=== PATIENT | male | born 1980 | race Caucasian/White ===

== ENCOUNTER 2018-12-18 15:54 | Emergency (ER) | payer OTHER, SELFPAY ==
[2018-12-18 16:04] VITALS: BP 134/65; PULSE 66; RESP 14; TEMP 36.9; O2SAT 99
--- NOTE | 2018-12-18 16:27 | DI.US.S_ITS ---
PROCEDURE: US PERIPH VENOUS LOW EXTREM RT INDICATIONS: rt leg pain, swelling TECHNIQUE: Real-time imaging, as well as color and pulse Doppler interrogation, were performed of the lower extremity deep veins from the inguinal ligament to the popliteal fossa. COMPARISON: None. FINDINGS: The deep veins are normally compressible, and free of intraluminal thrombus. Color and pulse Doppler demonstrate normal phasic intraluminal flow. There is normal augmentation response to distal compression maneuver. IMPRESSION: No deep venous thrombosis in the right lower extremity. Dictated by: Simon Buchanan M.D. on 12/18/2018 at 17:14 Approved by: Simon Buchanan M.D. on 12/18/2018 at 17:14
[2018-12-18] MEDS: KETOROLAC 60 MG/2 ML VIAL 30 MG IM (16:36)
--- NOTE | 2018-12-18 16:41 | ED.LOWEXIN ---
HPI - Extremity Injury (Lower) <LEIGHTON Butler - Last Filed: 12/18/18 17:39> General Chief Complaint: Extremity Injury, Lower Stated Complaint: RT LEG PAIN, DIFFICULTY WALKING Time Seen by Provider: 12/18/18 16:09 Source: patient Mode of arrival: ambulatory Limitations: no limitations History of Present Illness HPI Narrative: Patient is a 30-year-old male current everyday smoker presents with a chief complaint of right calf pain and swelling. States he has a history of depression and has gained 60 lb in the past year. His is concerned about a blood clot in his leg given a family history of blood clots. Of note he states he has also been increasing his activity and using the elliptical over the past week. He denies any twisting or injury to his knee. He denies any trauma or falls. he denies any chest pain or shortness of breath. States slight swelling in his right lower leg. Related Data Home Medications Medication Instructions Recorded Confirmed No Known Home Medications 12/18/18 12/18/18 Allergies Allergy/AdvReac Type Severity Reaction Status Date / Time No Known Drug Allergies Allergy Verified 12/18/18 16:46 Review of Systems <AUBRIE Butler - Last Filed: 12/18/18 17:39> Review of Systems GENERAL: Denies chills, fatigue, malaise, fever, sweats. HEENT: Denies sinus pain, ear pain, sore throat, difficulty swallowing, dizziness. RESPIRATORY: Denies dyspnea, cough, wheezing, hemoptysis, sputum. CARDIOVASCULAR: Denies chest pain, palpitations, orthopnea, edema, GASTROINTESTINAL: Denies nausea, vomiting, abdominal pain, diarrhea, constipation, melena. : Denies dysuria, frequency, incontinence, hematuria, urinary retention. MUSCULOSKELETAL: See HPI SKIN: Denies rash, skin lesions, or other NEUROLOGIC: Denies weakness, headache, numbness, change in speech, confusion, seizures, incoordination. PSYCHIATRIC: No concerning psychosocial issues. 12 point review of systems is negative except for those stated above Exam <AUBRIE Butler - Last Filed: 12/18/18 17:39> Narrative Exam Narrative: GENERAL: This is a well-nourished, well-developed patient, In no acute distress HEAD: Atraumatic. Normocephalic. No temporal or scalp tenderness. EYES: Pupils equal round and reactive. Extraocular motions intact. No scleral icterus. No injection or drainage. ENT: Nose without bleeding, purulent drainage or septal hematoma. Throat without erythema, tonsillar hypertrophy or exudate. Uvula midline. Airway patent. NECK: Trachea midline. No JVD or lymphadenopathy. Supple, nontender, no meningeal signs. CARDIOVASCULAR: Regular rate and rhythm RESPIRATORY: no cough. No increased respiratory effort. No accessory muscle use. EXTREMITIES: Generalized pain to palpation right gastroc. Positive pedal pulses right foot. No localized erythema or swelling noted right lower leg. Negative Homans sign right leg. No pain to palpation right knee. BACK: Nontender without deformity or crepitance. No flank tenderness. NEURO: AOx3. SKIN: No rash or erythema. No erythema noted right lower leg. Initial Vital Signs Initial Vital Signs: Vital Signs Temperature 98.4 F 12/18/18 16:04 Pulse Rate 66 12/18/18 16:04 Respiratory Rate 14 12/18/18 16:04 Blood Pressure 134/65 12/18/18 16:04 Pulse Oximetry 99 12/18/18 16:04 <DO Bev Michael Last Filed: 12/18/18 17:46> Initial Vital Signs Initial Vital Signs: Vital Signs Temperature 98.4 F 12/18/18 16:04 Pulse Rate 66 12/18/18 16:04 Respiratory Rate 14 12/18/18 16:04 Blood Pressure 134/65 12/18/18 16:04 Pulse Oximetry 99 12/18/18 16:04 Course <DONNA Butler-PORTER - Last Filed: 12/18/18 17:39> Orders Ordered: ED Orders 12/18/18 16:27 perip venous low extrem rt Stat Discontinued Medications Ketorolac Tromethamine (Toradol) 30 mg IM NOW ONE Stop: 12/18/18 16:30 Last Admin: 12/18/18 16:36 Dose: 30 mg Vital Signs - 8 hr 12/18/18 16:04 12/18/18 17:40 Temperature 98.4 F Pulse Rate 66 77 Respiratory Rate 14 16 Blood Pressure 134/65 132/76 Pulse Oximetry 99 98 <DO Bev Michael Last Filed: 12/18/18 17:46> Orders Ordered: ED Orders 12/18/18 16:27 US perip venous low extrem rt Stat Discontinued Medications Ketorolac Tromethamine (Toradol) 30 mg IM NOW ONE Stop: 12/18/18 16:30 Last Admin: 12/18/18 16:36 Dose: 30 mg Vital Signs - 8 hr 12/18/18 16:04 12/18/18 17:40 Temperature 98.4 F Pulse Rate 66 77 Respiratory Rate 14 16 Blood Pressure 134/65 132/76 Pulse Oximetry 99 98 MDM - Extremity Injury (Lower) <LEIGHTON Butler - Last Filed: 12/18/18 17:39> Imaging Data Venous US: Radiologist's impression: [address] [address] Ultrasound Report Signed Patient: JESSIE HAIDER [facility]#: [id number] : 1980Acct:[id number] Age/Sex: 38 / MDate of Service: 12/18/18 Loc: ED Accession Number: [id number] Procedure: US periph venous low extrem rt Ordering Provider: Meg Nguyen PROCEDURE: US PERIPH VENOUS LOW EXTREM RT INDICATIONS: rt leg pain, swelling TECHNIQUE: Real-time imaging, as well as color and pulse Doppler interrogation, were performed of the lower extremity deep veins from the inguinal ligament to the popliteal fossa. COMPARISON: None. FINDINGS: The deep veins are normally compressible, and free of intraluminal thrombus. Color and pulse Doppler demonstrate normal phasic intraluminal flow. There is normal augmentation response to distal compression maneuver. IMPRESSION: No deep venous thrombosis in the right lower extremity. Dictated by: Simon Buchanan M.D. on 12/18/2018 at 17:14 Approved by: Simon Buchanan M.D. on 12/18/2018 at 17:14 [facility] Narrative Medical decision making narrative: Patient is a 38-year-old male who presents with acute onset her right lower leg pain starting few days ago and worsening today to the point where he has a difficult time walking. Given his risk factors of smoking, obesity and family history, he was concerned about a blood clot. Altered Sound was negative for DVT. I discussed at length conservative measures for his leg pain including rest ice compression elevation as well as [id number] medications as needed and able. He received Toradol in the emergency department. Given his lack of injury or fall or knee pain, he declined x-rays today. He states he plans on following up with his primary care provider. I discussed at length return precautions to emergency department including chest pain shortness of breath or acute concerns. he had no questions or concerns upon discharge. Discharge Plan Departure Patient Disposition: Home Clinical Impression: Acute leg pain Discharge Date/Time: 12/18/18 17:41 Interventions: ED Discharge Assessment Last Done: 12/18/18 17:40 Instructions: How To Perform RICE (Rest, Ice, Compress, Elevate), DI for Leg Pain Activity Restrictions/Additional Instructions: Your ultrasound came back negative for a blood clot today. Please follow-up with primary care provider in a few days as we discussed. Please use conservative measures including rest ice compression elevation as well as [id number] pain medications as needed and able. Please do not take any ibuprofen until after midnight due to the pain medication in the emergency department. Come back to the emergency department for any acute concerns including concern of heart attack or stroke or blood clot. Prescriptions: No Action No Known Home Medications RF: 0 Referrals: [facility] [Provider Group] <Patrick Shabazz DO - Last Filed: 12/18/18 17:46> [facility] Attending Afshan Attestation: I was available for consultation during this patient's emergency department encounter
[2018-12-18 17:40] VITALS: BP 132/76; PULSE 77; RESP 16; O2SAT 98
== END 2018-12-18 17:41 | disposition home or self-care (01) ==
PROVIDERS: Emergency Provider Nurse Practitioner Family
DX: M79.604 Pain in right leg (principal)
CPT/HCPCS: 93971; 96372; 99282; 99284; J1885

== ENCOUNTER → 2020-01-08 09:19 | Outpatient (CLI) | payer OTHER, SELFPAY | PROVIDERS: PCP Family Medicine; Referring Provider Family Medicine; Visit Provider Family Medicine | DX: M25.512 Pain in left shoulder (principal); Z53.9 Procedure and treatment not carried out, unspecified reason ==